=== PATIENT | male | born 1970 | race Caucasian/White ===

== ENCOUNTER → 2016-09-29 | Emergency (ER) | payer OTHER ==
[2016-09-29 01:08] VITALS: BP 112/71; PULSE 58; TEMP 97.8; BMI 29.8
--- NOTE | 2016-09-29 01:39 | PDOC ---
History of Present Illness - General Chief Complaint: Foreign Body (FB) Stated Complaint: FOREIGN SUBSTANCE/RT EYE Time Seen by Provider: 09/29/16 01:02 - History of Present Illness Initial Comments: 09/29/16 01:56 CHIEF COMPLAINT: glue to left eye HISTORY OF PRESENT ILLNESS: 45 yo M with hx of HLD presents to ED with glue to left eye. Mother is at bedside and reports that patient had asked her to put eye medicine in his eye today and she accidentally used super glue. He is unable to open his eye. No recent travel or sick contacts. PAST MEDICAL HISTORY: Denies past medical history FAMILY HISTORY: Denies SOCIAL HISTORY: Denies tobacco, alcohol, illicit drug use. SURGICAL HISTORY: Denies ALLERGIES: No known drug allergies REVIEW OF SYSTEMS General/Constitutional: Denies fever or chills. HEENT: Glue to left eye. Denies change in vision of R eye. Cardiovascular: Denies chest pain or shortness of breath. Respiratory: Denies cough, wheezing, or hemoptysis. Gastrointestinal: Denies nausea, vomiting, diarrhea or constipation. Denies rectal bleeding. PHYSICAL EXAM General Appearance: Well-appearing, appropriately dressed. No apparent distress. HEENT: EOMI, PERRLA, normal ENT inspection, normal voice, TMs normal, pharynx normal. No conjunctival pallor. No photophobia, scleral icterus. Respiratory/Chest: Lungs CTAB. Cardiovascular: RRR. S1, S2. Musculoskeletal/Extremities: Normal inspection. FROM of all extremities, normal capillary refill. No tenderness to extremities, pedal edema, swelling, erythema or deformity. Integumentary: Appropriate color, dry, warm. Past History - Past Medical History Allergies/Adverse Reactions: Allergies Allergy/AdvReac Type Severity Reaction Status Date / Time No Known Allergies Allergy Verified 09/29/16 01:07 Home Medications: Ambulatory Orders Atorvastatin Ca [Lipitor -] 40 mg PO HS tablet 12/26/13 Cyclobenzaprine HCl [Flexeril] 5 mg PO TID PRN #12 tablet 05/23/15 Oxycodone HCl/Acetaminophen [Percocet 5/325 -] 1 - 2 tab PO Q6H PRN #12 tab 08/03 Erythromycin 0.5% Eye Ointment [Erythromycin 0.5% Eye Ointment -] 1 applic OS TID #1 tube 09/29/16 Hypercholesterolemia: Yes - Psycho/Social/Smoking Cessation Hx Anxiety: No Suicidal Ideation: No Smoking History: Never smoked Have you smoked in the past 12 months: No Information on smoking cessation initiated: No Hx Alcohol Use: No Drug/Substance Use Hx: No Substance Use Type: None *Physical Exam - Vital Signs Last Vital Signs Temp Pulse Resp BP Pulse Ox 97.8 F 58 L 14 112/71 97 09/29/16 01:07 09/29/16 01:07 09/29/16 01:07 09/29/16 01:07 09/29/16 01:07 Medical Decision Making - Medical Decision Making 09/29/16 01:58 45 yo M with hx of HLD presents to ED with glue to left eye. -Erythromycin ointment Advised patient to f/u with ophtho tomorrow and of signs and symptoms for return to ER. Patient verbalized understanding and agrees to plan. *DC/Admit/Observation/Transfer Diagnosis at time of Disposition: Foreign body in eye Qualifiers: Encounter type: initial encounter Laterality: left Qualified Code(s): T15.92XA - Foreign body on external eye, part unspecified, left eye, initial encounter - Discharge Dispostion Admit: No - Prescriptions Prescriptions: Erythromycin 0.5% Eye Ointment [Erythromycin 0.5% Eye Ointment -] 1 applic OS TID #1 tube - Referrals Referrals: Christophe Ma MD [Staff Physician] - - Patient Instructions Additional Instructions: As discussed, please apply eye ointment to the eye 3-4 times daily and follow up with ophthalmology tomorrow. If you experience any pain behind your eye, headache, dizziness, or any new or worsening symptoms, please return to the ER. - Post Discharge Activity Work/School Note: Back to Work
--- NOTE | 2016-09-29 01:44 | PDOC ---
*Physical Exam - Vital Signs Last Vital Signs Temp Pulse Resp BP Pulse Ox 97.8 F 58 L 14 112/71 97 09/29/16 01:07 09/29/16 01:07 09/29/16 01:07 09/29/16 01:07 09/29/16 01:07 Medical Decision Making - Medical Decision Making 09/29/16 01:43 agree with care from KATALINA Mclean *DC/Admit/Observation/Transfer Diagnosis at time of Disposition: Foreign body in eye Qualifiers: Encounter type: initial encounter Laterality: left Qualified Code(s): T15.92XA - Foreign body on external eye, part unspecified, left eye, initial encounter - Prescriptions Prescriptions: Erythromycin 0.5% Eye Ointment [Erythromycin 0.5% Eye Ointment -] 1 applic OS TID #1 tube - Referrals Referrals: Christophe Ma MD [Staff Physician] - - Patient Instructions Additional Instructions: As discussed, please apply eye ointment to the eye 3-4 times daily and follow up with ophthalmology tomorrow. If you experience any pain behind your eye, headache, dizziness, or any new or worsening symptoms, please return to the ER. - Post Discharge Activity Work/School Note: Back to Work
== END | disposition home or self-care (01) ==
LOC: JER 00:36
DX: T15.92XA Foreign body on external eye, part unspecified, left eye, initial encounter (principal); X58.XXXA Exposure to other specified factors, initial encounter; Y93.9 Activity, unspecified; E78.00 Pure hypercholesterolemia, unspecified
CPT/HCPCS: 99283-25

== ENCOUNTER 2022-04-23 14:45 | Emergency (ER) | payer OTHER ==
[2022-04-23 14:51] VITALS: BP 158/115; PULSE 95; RESP 18; TEMP 97; BMI 31.4
[2022-04-23] MEDS ORDERED: LIDOCAINE 5% TOPICAL PATCH TP ONE (15:48)
[2022-04-23] MEDS ORDERED: ACETAMINOPHEN 500 MG TABLET (FP) PO ONE (15:48)
[2022-04-23] MEDS ORDERED: diazePAM 5 MG TABLET PO ONE (15:48)
[2022-04-23] MEDS ORDERED: KETOROLAC TROMETHAMINE 30 MG/1 ML VIAL IM ONE (15:48)
[2022-04-23] MEDS ORDERED: LIDOCAINE 5% TOPICAL PATCH ONE (15:54)
[2022-04-23] MEDS ORDERED: diazePAM 5 MG TABLET ONE (15:54)
[2022-04-23] MEDS ORDERED: ACETAMINOPHEN 500 MG TABLET (FP) ONE (15:54)
[2022-04-23] MEDS ORDERED: KETOROLAC TROMETHAMINE 30 MG/1 ML VIAL ONE (15:54)
[2022-04-23] MEDS ORDERED: LIDOCAINE PATCH REMOVAL MC SCH (22:00)
== END 2022-04-23 17:37 | disposition home or self-care (01) ==
LOC: JERFT 14:45 → JER 14:45 → JERFT 17:37
PROC: 3E0233Z Introduction of Anti-inflammatory into Muscle, Percutaneous Approach (ICD-10-PCS; principal; 2022-04-23)
DX: S39.012A Strain of muscle, fascia and tendon of lower back, initial encounter (principal); X50.0XXA Overexertion from strenuous movement or load, initial encounter
CPT/HCPCS: 99284-25